=== PATIENT | male | born 1980 | race Caucasian/White ===

== ENCOUNTER 2017-08-06 07:21 | Emergency (ER) | payer MEDICAID, SELFPAY ==
[2017-08-06 07:22] VITALS: BP 128/85; PULSE 68; RESP 20; TEMP 36.8; O2SAT 99; BMI 28.0
--- NOTE | 2017-08-06 07:31 | ED.VISSUMM ---
- ER Visit Summary Date of Service: 08/06/17 Chief Complaint: [] Anxiety since February 2017 History of Present Illness: The patient is a 37 M [] history of anxiety he was on multiple meds he basically stopped following up with his counselors and his primary care physicians so he indicates he has no medications. The anxiety is been going on since February it seemed to be worse last night no specific reason. He has no history of suicidal ideation, currently has no suicidal ideation no fever no cough head neck chest or abdominal pain he has ulcerative colitis as well controlled as he is seeing a GI specialist at [facility], He has been told to follow-up with primary care and counseling services for his anxiety and the medications he is chose not to do that he is aware of multiple follow-up options including the [facility], the counseling center, he freely admits he simply did not wish to follow-up. Physical Examination: [] No distress here with his father again he denies suicidal homicidal ideation denies alcohol or illicit drug use his vital signs are within normal range she is in no distress whatsoever there is no psychomotor agitation or delirium his HEENT exam is unremarkable lungs are clear heart tones are normal the abdomen is distended soft nontender production was unremarkable neurologically he is awake moving all 4 walking around the room Test Results: [] Emergency Department Course and Treatment: [] Long conversation with him clinically he looks well the anxiety seems to be more of an internal sensation, at this time he is given Ativan 1 mg p.o. he will be taken by the father and he is given the follow-up options above including he will be referred to [facility] on-call I explained to him that his anxiety must be managed by physicians who can monitor him for effectiveness of therapy side effects of medications etc. and cannot be managed in the emergency department he understands Treatment Plan: [] Disposition: [] Stable home Impression: [] Acute recurrent anxiety, history also colitis, history of deliberate noncompliance This note was generated with [employer] dictation software. It may contain incorrect words, spelling, and punctuation that were not noted in review of the chart prior to signing ED Disposition - Plan for ED Patient: Chief Complaint: Anxiety Referrals: Liliana Amezcua MD [Primary Care Provider] -
--- NOTE | 2017-08-06 07:34 | ED.DCSUM_ITS ---
- ER Visit Summary Date of Service: 08/06/17 Chief Complaint: [] Anxiety since February 2017 History of Present Illness: The patient is a 37 M [] history of anxiety he was on multiple meds he basically stopped following up with his counselors and his primary care physicians so he indicates he has no medications. The anxiety is been going on since February it seemed to be worse last night no specific reason. He has no history of suicidal ideation, currently has no suicidal ideation no fever no cough head neck chest or abdominal pain he has ulcerative colitis as well controlled as he is seeing a GI specialist at [facility], He has been told to follow-up with primary care and counseling services for his anxiety and the medications he is chose not to do that he is aware of multiple follow-up options including the [facility], the counseling center, he freely admits he simply did not wish to follow-up. Physical Examination: [] No distress here with his father again he denies suicidal homicidal ideation denies alcohol or illicit drug use his vital signs are within normal range she is in no distress whatsoever there is no psychomotor agitation or delirium his HEENT exam is unremarkable lungs are clear heart tones are normal the abdomen is distended soft nontender production was unremarkable neurologically he is awake moving all 4 walking around the room Test Results: [] Emergency Department Course and Treatment: [] Long conversation with him clinically he looks well the anxiety seems to be more of an internal sensation, at this time he is given Ativan 1 mg p.o. he will be taken by the father and he is given the follow-up options above including he will be referred to [facility] primary care on-call I explained to him that his anxiety must be managed by physicians who can monitor him for effectiveness of therapy side effects of medications etc. and cannot be managed in the emergency department he understands Treatment Plan: [] Disposition: [] Stable home Impression: [] Acute recurrent anxiety, history also colitis, history of deliberate noncompliance This note was generated with [employer] dictation software. It may contain incorrect words, spelling, and punctuation that were not noted in review of the chart prior to signing ED Disposition - Plan for ED Patient: Chief Complaint: Anxiety Referrals: Liliana Amezcua MD [Primary Care Provider] -
--- NOTE | 2017-08-06 07:34 | ED.DEP ---
ED Disposition - Plan for ED Patient: Chief Complaint: Anxiety Instructions: ED Panic Attack, ED Stress React Referrals: Liliana Amezcua MD [Primary Care Provider] - Yanet Gu [NON-STAFF] - [facility] [GROUP OF PHYSICIANS] -
--- NOTE | 2017-08-06 07:35 | ED.DEP ---
ED Disposition - Plan for ED Patient: Chief Complaint: Anxiety Instructions: ED Stress React, ED Panic Attack Referrals: [facility] [GROUP OF PHYSICIANS] - Yanet Gu [NON-STAFF] - Liliana Amezcua MD [Primary Care Provider] -
[2017-08-06] MEDS: LORazepam 1 MG Tablet PO (07:39)
[2017-08-06 07:52] VITALS: RESP 15
== END 2017-08-06 08:06 | disposition home or self-care (01) ==
LOC: ED 07:53
PROVIDERS: Emergency Provider Emergency Medicine; Family Provider Internal Medicine; PCP Internal Medicine
DX: F41.9 Anxiety disorder, unspecified (principal); Z87.19 Personal history of other diseases of the digestive system; Z91.19 Patient's noncompliance with other medical treatment and regimen; K51.90 Ulcerative colitis, unspecified, without complications; Z79.899 Other long term (current) drug therapy
CPT/HCPCS: 99282